=== PATIENT | female | born 1995 | race Caucasian/White ===

== ENCOUNTER 2022-03-13 03:26 | Inpatient (IN) | payer MEDICAID ==
[~2022-03-13] VITALS: Ht 157.5 cm; Wt 60.3 kg
[2022-03-13 03:30] VITALS: BP_SYST 72
[2022-03-13] MEDS ORDERED: OXYTOCIN 10 UNIT/ML VIAL ONE ×2 (03:57→06:25)
[2022-03-13] MEDS ORDERED: METHYLERGONOVINE MALEATE 0.2 MG/ML AMP IM ONE (04:00)
[2022-03-13] MEDS ORDERED: OXYTOCIN/0.9 % SODIUM CHLORIDE 1,000 ML IV SCH (04:00)
[2022-03-13] MEDS ORDERED: HEMABATE 250MCG/ML VIAL AMP IM ONE ×2 (04:00→04:10)
[2022-03-13] MEDS ORDERED: MISOPROSTOL 100 MCG TABLET (CYTOTEC) VG ONE (04:00)
[2022-03-13] MEDS ORDERED: MORPHINE 4 MG INJ. 4 MG/ML VIAL ONE (04:06)
[2022-03-13] MEDS ORDERED: MISOPROSTOL 100 MCG TABLET (CYTOTEC) ONE (04:08)
[2022-03-13] MEDS ORDERED: METHYLERGONOVINE MALEATE 0.2 MG/ML AMP ONE ×3 (04:10→06:05)
[2022-03-13 04:11] LABS: BASOPHILS % (AUTO) 0.5 % (0.0-2.0); EOSINOPHILS # (AUTO) 0.1 K/uL (0.0-0.4); EOSINOPHILS % (AUTO) 1.4 % (0.0-4.0); HEMATOCRIT 24.4 % (36-48); HEMOGLOBIN 8.3 g/dL (12.0-16.0); LYMPHOCYTES # (AUTO) 2.9 K/uL (1.0-5.5); LYMPHOCYTES % (AUTO) 47.3 % (20.5-51.5); MEAN CORPUSCULAR HEMOGLOBIN 30 pg (27-31); MEAN CORPUSCULAR HGB CONC 34 % (32-36); MEAN CORPUSCULAR VOLUME 89 fL (79.0-98.0); MONOCYTES # (AUTO) 0.4 K/uL (0.0-1.0); MONOCYTES % (AUTO) 7.2 % (1.7-9.3); NEUTROPHILS # (AUTO) 2.7 K/uL (1.8-7.7); NEUTROPHILS % (AUTO) 43.6 % (40.0-70.0); PLATELET COUNT (AUTO) 202 K/uL (130-430); RED BLOOD CELL COUNT(AUTO) 2.73 MIL/uL (4.2-6.2); RED CELL DISTRIBUTION WIDTH 13.2 % (9.0-15.0); WHITE BLOOD COUNT (AUTO) 6.2 K/uL (4.8-10.8)
[2022-03-13] MEDS ORDERED: MORPHINE 4 MG INJ. 4 MG/ML VIAL IVP ONE (04:15)
[2022-03-13 04:26] LABS: CREATININE 0.66 mg/dL (0.55-1.30); POTASSIUM 3.1 mmol/L (3.5-5.1)
[2022-03-13 04:31] LABS: INR 1.1 (0.8-1.2); PROTHROMBIN TIME 11.8 SECS (9.5-12.5)
[2022-03-13 04:37] LABS: TOTAL BILIRUBIN 0.2 mg/dL (0.0-1.0)
[2022-03-13] MEDS ORDERED: ONDANSETRON HCL 4 MG/2 ML VIAL ONE (04:55)
[2022-03-13] MEDS ORDERED: METOCLOPRAMIDE HCL 10 MG/2 ML VIAL IVP PRN (05:45)
[2022-03-13] MEDS ORDERED: fentaNYL CITRATE/PF 100 MCG/2 ML AMP IVP PRN ×2 (05:45)
[2022-03-13] MEDS ORDERED: ONDANSETRON HCL 4 MG/2 ML VIAL IVP PRN (05:45)
[2022-03-13 05:56] VITALS: BP_SYST 112
[2022-03-13] MEDS ORDERED: fentaNYL CITRATE/PF 100 MCG/2 ML AMP ONE ×2 (06:05→06:20)
[2022-03-13] MEDS ORDERED: NS IRRIG SOLN 5000 ML IR ONE (06:05)
[2022-03-13] MEDS ORDERED: NS 1000 ML IV.SOLN IV ONE (06:05)
[2022-03-13] MEDS ORDERED: SEVOFLURANE 15 MIN GAS INH ONE (06:05)
[2022-03-13] MEDS ORDERED: MIDAZOLAM HCL 5 MG/ML VIAL (VERSED) IV ONE (06:05)
[2022-03-13] MEDS ORDERED: PROPOFOL 200MG/ 20ML VIAL (DIPRIVAN) IV ONE (06:05)
[2022-03-13] MEDS ORDERED: KETOROLAC TROMETHAMINE 30 MG VIAL IVP PRN (07:00)
[2022-03-13 08:25] LABS: BASOPHILS % (AUTO) 0.1 % (0.0-2.0); EOSINOPHILS % (AUTO) 0.1 % (0.0-4.0); HEMATOCRIT 28.6 % (36-48); HEMOGLOBIN 9.6 g/dL (12.0-16.0); LYMPHOCYTES # (AUTO) 0.7 K/uL (1.0-5.5); LYMPHOCYTES % (AUTO) 7.3 % (20.5-51.5); MEAN CORPUSCULAR HEMOGLOBIN 30 pg (27-31); MEAN CORPUSCULAR HGB CONC 34 % (32-36); MEAN CORPUSCULAR VOLUME 90 fL (79.0-98.0); MONOCYTES # (AUTO) 0.5 K/uL (0.0-1.0); MONOCYTES % (AUTO) 5.5 % (1.7-9.3); NEUTROPHILS # (AUTO) 7.9 K/uL (1.8-7.7); PLATELET COUNT (AUTO) 168 K/uL (130-430); RED BLOOD CELL COUNT(AUTO) 3.18 MIL/uL (4.2-6.2); RED CELL DISTRIBUTION WIDTH 13.6 % (9.0-15.0); WHITE BLOOD COUNT (AUTO) 9.1 K/uL (4.8-10.8)
[2022-03-13 08:38] LABS: CREATININE 0.55 mg/dL (0.55-1.30); POTASSIUM 4.2 mmol/L (3.5-5.1)
[2022-03-13 08:59] LABS: ALBUMIN 2.3 g/dL (3.4-4.8)
[2022-03-13 09:23] LABS: TOTAL BILIRUBIN 0.4 mg/dL (0.0-1.0)
[2022-03-13] MEDS: GENTAMICIN SULFATE 400 MG in NS 100 ML IV SCH (10:52)
[2022-03-13] MEDS: AMPICILLIN SODIUM 2 GM in NS 100 ML IV SCH ×3 (12:01→23:55)
[2022-03-13] MEDS ORDERED: ACETAMINOPHEN 325 MG TABLET ONE (15:01)
[2022-03-13] MEDS ORDERED: ACETAMINOPHEN 325 MG TABLET PO PRN (15:15)
[2022-03-13] MEDS: LR 1,000 ML IV SCH ×2 (18:08→23:06)
[2022-03-14] MEDS: LR 1,000 ML IV SCH ×2 (03:32→06:25)
[2022-03-14] MEDS: AMPICILLIN SODIUM 2 GM in NS 100 ML IV SCH ×2 (06:25→12:07)
[2022-03-14 08:24] LABS: CREATININE 0.45 mg/dL (0.55-1.30); POTASSIUM 3.7 mmol/L (3.5-5.1); TOTAL BILIRUBIN 0.3 mg/dL (0.0-1.0)
[2022-03-14] MEDS: GENTAMICIN SULFATE 400 MG in NS 100 ML IV SCH (10:00)
[2022-03-14 10:56] LABS: BASOPHILS % (AUTO) 0.8 % (0.0-2.0); EOSINOPHILS # (AUTO) 0.1 K/uL (0.0-0.4); EOSINOPHILS % (AUTO) 1.5 % (0.0-4.0); HEMOGLOBIN 7.5 g/dL (12.0-16.0); LYMPHOCYTES # (AUTO) 1.6 K/uL (1.0-5.5); MEAN CORPUSCULAR HEMOGLOBIN 31 pg (27-31); MEAN CORPUSCULAR HGB CONC 35 % (32-36); MEAN CORPUSCULAR VOLUME 89 fL (79.0-98.0); MONOCYTES # (AUTO) 0.2 K/uL (0.0-1.0); MONOCYTES % (AUTO) 5.4 % (1.7-9.3); NEUTROPHILS # (AUTO) 2.6 K/uL (1.8-7.7); NEUTROPHILS % (AUTO) 57.3 % (40.0-70.0); PLATELET COUNT (AUTO) 146 K/uL (130-430); RED BLOOD CELL COUNT(AUTO) 2.43 MIL/uL (4.2-6.2); RED CELL DISTRIBUTION WIDTH 13.8 % (9.0-15.0); WHITE BLOOD COUNT (AUTO) 4.5 K/uL (4.8-10.8)
[2022-03-14 11:03] LABS: HEMATOCRIT 21.5 % (36-48)
[2022-03-14] MEDS ORDERED: METHYLERGONOVINE MALEATE 0.2 MG/ML AMP ONE (11:27)
[2022-03-14] MEDS ORDERED: OXYTOCIN 10 UNIT/ML VIAL ONE (17:43)
[2022-03-14] MEDS ORDERED: OXYTOCIN/0.9 % SODIUM CHLORIDE 1,000 ML IV SCH (17:45)
== END 2022-03-14 18:48 | disposition home or self-care (01) | DRG 548 ==
LOC: SED 03:26 → SPU 05:35
PROVIDERS: ADMIT Obstetrics & Gynecology; ATTEND Obstetrics & Gynecology
PROC: 30233N1 Transfusion of Nonautologous Red Blood Cells into Peripheral Vein, Percutaneous Approach (ICD-10-PCS; 2022-03-13)
PROC: 0UDB7ZZ Extraction of Endometrium, Via Natural or Artificial Opening (ICD-10-PCS; principal; 2022-03-13 05:00)
DX: O72.2 Delayed and secondary postpartum hemorrhage (principal); D62 Acute posthemorrhagic anemia; N93.9 Abnormal uterine and vaginal bleeding, unspecified; Z20.822 Contact with and (suspected) exposure to COVID-19
CPT/HCPCS: 36415; 36430; 76856-TC; 80053; 84702; 85025; 85610-TC; 85730-TC; 86870; 86886; 86900; 86901; 86920; 88305; 96365; 96372; 99291; J0290; J1580; J2210; J2250; J2270; J2405; J2590; J2704; J3010; J7030; P9021